=== PATIENT | male | born 1945 | race Caucasian/White ===

== ENCOUNTER 2022-05-14 11:21 | Observation (INO) | payer MEDICARE, BC, SELFPAY ==
[2022-05-14] VITALS (18 sets, daily range): BP systolic 96–125; BP diastolic 60–80; PULSE 70–128; RESP 15–20; TEMP 36.2–36.3; O2SAT 94–100; BMI 25.9
--- NOTE | ~2022-05-14 | US_ITS ---
EXAMINATION: US scrotum doppler DATE: 05/14/2022 12:39 INDICATION: Scrotal edema TECHNIQUE: Testicular sonogram utilizing grayscale and Doppler COMPARISON: None. FINDINGS: The right testis measures 3.3 x 3.6 x 1.0 cm. The left testis measures 3.8 x 1.3 x 2.8 cm. There is normal vascular flow to both testes. The right epididymis contains a 7 mm cyst or spermatoce le. The left epididymis contains a 5 mm cyst or spermatocele. There is a moderate-sized right hydroce le. There are loops of bowel herniated into the right scrotum. IMPRESSION: 1. Herniated bowel in the right scrotum. Reviewed, dictated and finalized at location B.
--- NOTE | ~2022-05-14 | XR_ITS ---
EXAMINATION: XR chest 1V portable INDICATION: Transient alteration of awareness TECHNIQUE: Portable AP chest at 1137 hours COMPARISON: None available FINDINGS: The lungs are free of acute opacities. No pleural effusion or pneumothorax. The cardiomedia stinal silhouette is normal. IMPRESSION: 1. No acute cardiopulmonary abnormality. Reviewed, dictated and finalized at location B.
--- NOTE | ~2022-05-14 | CT_ITS ---
EXAMINATION: CT brain wo con INDICATION: Transient alteration of awareness COMPARISON: 02/22/2011 TECHNIQUE: Standard unenhanced head CT. The dose-length product (DLP) was 681.00 mGy-cm. The mA was a djusted according to patient size. Iterative reconstruction technique was employed. FINDINGS: There is no acute intraparenchymal hemorrhage. No evidence of mass lesion. No evidence of a cute infarction. 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 There is mild periventricular and subcortical hypodensity probably related to small vessel ischemic disease. There is mild prominence of the sulci and ventricles related to cerebral atrophy. Intracranial calcified cerebral atherosclero sis is noted. There are no extra-axial collections. There is no mass effect or midline shift. The orb its and soft tissues are unremarkable. The visualized sinuses and mastoid air cells are well aerated. IMPRESSION: 1. No acute intracranial abnormality. 2. Age related findings. Reviewed, dictated and finalized at location B.
--- NOTE | ~2022-05-14 | US_ITS ---
EXAMINATION: US carotid duplex BI DATE: 05/15/2022 11:29 INDICATION: Carotids stenosis TECHNIQUE: Grayscale, color Doppler, and pulsed Doppler images of the cervical carotid arteries were obtained. The degree of vessel stenosis is placed in one of the following categories: normal, <50%, 5 0-69%, >=70% but less than near-occlusion, near-occlusion, or total occlusion. Note that percent sten osis relative to normal distal artery lumen diameter is indirectly measured from velocity measurement s as described by Geovani, et al. Radiology 2003; 229:340-346. Notes: Normal: Peak systolic velocity <125 centimeters/sec and no plaque <50%. Peak systolic velocity <125 ( EDV <40; ICA/CCA PSV ratio <2.0; used these factors only a tandem lesions or low cardiac output or co ntralateral disease) 50-69 %: PSV 125-230 (EDV 40-100; ratio 2-4) >= 70% but less than near occlusion: PSV greater than 230 (EDV > 100; ratio> 4.0) Near Occlusion: PSV that is variable; markedly narrowed lumen Occlusion: Absent flow on color/spectral Doppler and no lumen on hopkins scale. COMPARISON: None. FINDINGS: RIGHT: The right common carotid artery (CCA) peak systolic velocity (PSV) is 65 cm/s. The right internal car otid artery (ICA) PSV is 116 cm/s. The right ICA end-diastolic velocity (EDV) is 32 cm/s. The right I CA/CCA PSV ratio is 1.8. The external carotid artery (ECA) PSV is 94 cm/s. There is antegrade flow in the right vertebral artery. LEFT: The left CCA PSV is 65 cm/s. The left ICA PSV is 97 cm/s. The left ICA EDV is 27 cm/s. The left ICA/C CA PSV ratio is 1.8. The ECA PSV is 104 cm/s. There is antegrade flow in the left vertebral artery. IMPRESSION: 1. Less than 50% stenosis in the right internal carotid artery by sonographic criteria. 2. Less than 50% stenosis in the left internal carotid artery by sonographic criteria. Reviewed, dictated and finalized at location A. IMPRESSION: 1. Less than 50% stenosis in the right internal carotid artery by sonographic la davila. 2. Less than 50% stenosis in the left internal carotid artery by sonographic misti kwong.
[2022-05-14 11:31] LABS: Glucose Point of Care 180 mg/dl (65-105)
[2022-05-14] MEDS: SODIUM CHLORIDE 0.9% IV 1,000 ML 999 ML IV CONT (11:43)
--- NOTE | 2022-05-14 11:43 | PC.NURSE ---
Pt to CT. will go to ultrasound following CT.
--- NOTE | 2022-05-14 11:44 | ECG_ITS ---
Measurements Intervals [place] Rate: 89 P: 54 ME: 160 QRS: 28 QRSD: 94 T: 81 QT: 420 QTc: 511 Interpretive Statements SINUS RHYTHM LEFT VENTRICULAR HYPERTROPHY AND ST-T CHANGE BORDERLINE ECG Electronically Signed On 05-14-2022 12:07:59 CDT by Luis Antonio Huerta D.O.
[2022-05-14 11:54] LABS: Basophils Absolute Auto 0.1 K/mm3 (0.0-0.1); Basophils Percent Auto 0.7 % (0.2-1.2); Eosinophils Absolute Auto 0.3 K/mm3 (0-0.3); Eosinophils Percent Auto 3.5 % (0-4.4); Hematocrit 34.7 % (42.0-52.0); Immature Granulocyte Absolute 0.03 K/mm3 (0.00-0.031); Immature Granulocyte Percent A 0.3 % (0-0.5); Lymphocytes Absolute Auto 2.88 K/mm3 (0.9-3.2); Lymphocytes Percent Auto 31.9 % (18.3-44.2); Mean Corpuscular HGB Conc 28.8 g/dl (32-36); Mean Corpuscular Hemoglobin 24.5 pg (26-34); Mean Platelet Volume 11.2 fl (7.4-10.4); Monocytes Absolute Auto 1.1 K/mm3 (0.1-0.6); Monocytes Percent Auto 11.6 % (2.6-8.5); Neutrophils Absolute Auto 4.7 K/mm3 (1.3-6.7); Platelet Count Result 303 k/mm3 (150-375); Red Blood Count 4.08 M/mm3 (4.6-6.20); Red Cell Distribution Width 19.9 % (11.5-14.5)
--- NOTE | 2022-05-14 12:01 | ED.GENADULT ---
HPI - General Adult General Chief complaint: Syncope Stated complaint: snycope Time Seen by Provider: 05/14/22 11:25 Source: RN notes reviewed History of Present Illness HPI narrative: Patient presents emergency department from hospital waiting room for possible syncopal episode. Rapid response was called and patient was found lying on the floor and in the waiting room patient was initially diaphoretic and having repetitive questioning per staff the responded patient currently is laying in bed he denies any complaints at this time. States he does not recall what happened he denies having any headaches, numbness or tingling in extremities, chest pain, shortness of breath abdominal pain nausea vomiting or any other symptoms. Patient is noted to have a swollen scrotum and he states that his scrotum has been swollen for quite some time and that this is not new and has no pain Related Data Home Medications Medication Instructions Recorded Confirmed Acid Controller 20 mg BID 05/14/22 05/14/22 Lactobacills gasseri-Bifidobac 1 cap PO DAILY 05/14/22 05/14/22 bifidum,longum 1.5 billion cell capsule (Charge Payment) One Daily [employer] 1 tablet DAILY 05/14/22 05/14/22 amlodipine 5 mg tablet 5 mg BID 05/14/22 05/14/22 aspirin 325 mg tablet 325 mg PO DAILY 05/14/22 05/14/22 clopidogrel 75 mg tablet 75 mg DAILY 05/14/22 05/14/22 dexlansoprazole 60 mg 60 mg DAILY 05/14/22 05/14/22 capsule,biphase delayed release (Dexilant) lecithin 1,200 mg BID 05/14/22 05/14/22 saw palmetto 450 mg capsule 2,250 mg DAILY 05/14/22 05/14/22 simvastatin 80 mg tablet 80 mg DAILY 05/14/22 05/14/22 Allergies Allergy/AdvReac Type Severity Reaction Status Date / Time NKDA Allergy Mild Other Uncoded 05/14/22 11:26 Review of Systems Review of Systems: Gen.: Denies fevers or chills Eyes: Denies eye pain or visual change ENT: Denies congestion Respiratory: Denies shortness of breath or cough CV: Denies chest pain or palpitations GI: Denies abdominal pain nausea, emesis or diarrhea Musculoskeletal: Denies back pain or muscle pain Neuro: Denies numbness, tingling, weakness or focal weakness Skin: Denies rash Except as documented, all other systems reviewed and negative [facility] Past Medical History Medical History (Updated 05/14/22 @ 16:57 by Brett Blum DO) Hypertension Social History Social History Smoking status: Never smoker Alcohol intake: never Substance use: never Spiritual care concerns: No Exam Narrative: APPEARANCE: No acute distress, nontoxic, resting in bed EYES: EOMI, PERRL HEENT: Normocephalic, atraumatic, OMM RESPIRATORY: No respiratory distress Clear to auscultation bilaterally with no rhonchi wheezing or rales. CARDIOVASCULAR: Regular rate and rhythm without murmurs rubs or gallops. ABDOMINAL: Soft, nontender, nondistended, no rebound or guarding : Marked scrotal swelling there is no erythema no tenderness to palpation unable to visualize the penis secondary to scrotal swelling MUSCULOSKELETAl: Moves all extremities. No clubbing, cyanosis or edema. NEURO: Awake and alert x 4. Following commands, speech normal, no focal deficits SKIN:: Warm, dry. No rashes lesions or abrasions PSYCHIATRIC: Normal affect/mood, Course Course Emergency Course: Discussed with MARLO Skinner for Dr. Sanchez agrees with admission Discussed with patient his hernia as this has been an ongoing issue and it no acute pain while the patient follow-up with general surgery as an outpatient Discussed with patient and family results of workup and diagnosis. Discussed need for admission. Patient and family understand and agree to current treatment plan Vital Signs Vital signs: Vital Signs Pulse Rate 89 05/14/22 11:23 Respiratory Rate 15 05/14/22 11:23 Blood Pressure 105/69 05/14/22 11:23 Pulse Oximetry 97 05/14/22 11:23 Oxygen Delivery Room Air 05/14/22 11:
[2022-05-14 12:12] LABS: INR 1.2; Partial Thromboplastin Time 26.1 SECONDS (22.3-36.8); Prothrombin Time 14.5 Seconds (11.1-14.7)
[2022-05-14 12:12] LABS: Alanine Aminotransferase 46 U/L (6-50); Albumin Level 4.5 g/dL (3.5-5.1); Alkaline Phosphatase 100 U/L (38-126); Anion Gap 22 mmol/L (8-16); Aspartate Amino Transferase 35 U/L (17-59); Bilirubin,Total 0.6 mg/dL (0.2-1.3); Blood Urea Nitrogen 11 mg/dL (9-20); Calcium 8.8 mg/dL (8.4-10.2); Carbon Dioxide 13 mmol/L (22-30); Chloride 104 mmol/L (98-107); Estimated CRCL calculation 51 ml/min; Estimated Glomerular Filt Rate > 60; Glucose 202 mg/dL (65-110); Potassium 3.3 mmol/L (3.4-5.0); Sodium 139 mmol/L (137-145)
[2022-05-14 12:23] LABS: Troponin I 0.012 ng/mL (0.000-0.034)
[2022-05-14 13:00] LABS: Platelet Estimate Adequate (Adequate)
[2022-05-14 13:01] LABS: Giant Platelets Present; Poikilocytosis 1+ (NORMAL)
[2022-05-14 13:02] LABS: Hypochromasia 2+ (NORMAL)
[2022-05-14 13:03] LABS: Atypical Lymphocytes Present; Burr Cells 1+ (NORMAL); Crenated RBC 1+ (NORMAL)
--- NOTE | 2022-05-14 13:06 | PC.NURSE ---
Pt attempting to provide urine sample.
[2022-05-14 13:20] LABS: Appearance Urine Clear (Clear); Bilirubin Urine Negative (Negative); Blood Urine Negative (Negative); Glucose Urine UA Negative (Negative); Ketones Urine Negative (Negative); Leukocyte Esterase Ur Negative LEU/UL (Negative); Nitrate Urine Negative (Negative); Protein Urine 1+ mg/dL (Negative); Urobilinogen Urine 0.2 mg/dL (<2.0)
[2022-05-14 13:28] LABS: Base Excess ABG -1.8 mEq/l (+/-2.0); Carboxyhemoglobin 0.1 % THb (0-2.0); Fractional Inspired Oxygen 21 %; HCO3 ABG 21.1 mEq/l (22.0-26.0); Oxygen Content ABG 14.5 %vol (16.0-22.0); Oxygen Saturation ABG 96.9 % (95.0-100.0); Oxyhemoglobin 95.5 % THb (90.0-100.0); PCO2 ABG 29.7 mmHg (35.0-45.0); PO2 ABG 83.2 mmHg (80.0-100.0); PO2 FiO2 Ratio Arterial Blood 3.96 %; Reduced Hemoglobin 4.4 %THb (0-5.0); Total Hemoglobin 10.7 g/dL (12.0-18.0)
[2022-05-14 13:29] LABS: Device ROOM AIR; Modified Allen's Test Pass; Site Drawn RIGHT RADIAL
[2022-05-14 13:33] LABS: Add Urine Microscopic? YES; Bacteria Urine Trace /hpf; Color Urine Light Yellow (Yellow); Mucus Urine Few /lpf; RBC Urine 0-2 /hpf (0-2); WBC Urine 0-3 /hpf
--- NOTE | 2022-05-14 13:33 | PC.NURSE ---
vrbo ok to change potassium 20 to powder per erp dr jane.
[2022-05-14] MEDS: POTASSIUM CHLORIDE 20 MEQ PACKET (FOR LIQUID) PO (13:39)
[2022-05-14 13:42] LABS: Lactic Acid Reflex 1.7 mmol/L (0.7-2.0)
--- NOTE | 2022-05-14 14:38 | PC.NURSE ---
This patient, Yeison See, was admitted to Medical Room 251-01. Patient/family oriented to hospital policies and general routines including ID bracelet, bed and alarms, visiting hours, pain management, procedures, bathroom and other care routines, personal items, smoking policy, room service/diet, and visiting hours. Information on how to activate the Rapid Response Team has been discussed. Patient/Family are encouraged to report perceived risks to care and to ask questions if they do not understand what they are told or what they should do.
--- NOTE | 2022-05-14 14:40 | PM.IMHP ---
H&P: HPI History of Present Illness Date/Time: 05/14/22 14:40 Chief Complaint: Found on ground. Narrative: This is a pleasant 76-year-old male with history of TIA, carotid artery disease status post left carotid artery stent, hypertension, hyperlipidemia, and benign prostatic hyperplasia who was brought to the emergency department from the 3rd floor waiting room for evaluation after he was found on the ground after a presumed syncopal episode. He was in his usual state of health when he awoke this morning and he came to the hospital to visit one of his parishioners. After the visit and while he was walking down the ramp to the elevator when he began to feel some discomfort in his chest associated with shortness of breath and weakness. At that time he walked to the waiting area where he sat down in a chair to rest. It is my understanding that another visitor was in the waiting room and they called for help after the patient reportedly fell out of his chair and was unconscious. He was awake and alert but confused and repetitive when staff responded. He was also pale and diaphoretic and Accu-Chek at that time was 195. He was brought down to the ER where his vital signs were stable and they have remained stable. Pertinent findings on workup done in ED include a mild normocytic anemia, mild hypokalemia, low serum carbon dioxide, anion gap of 22, and a troponin of 0.012. Brain CT and chest x-ray were both unremarkable for acute findings. EKG showed a sinus rhythm with findings of LVH changes. He has since been admitted for further evaluation of a presumed syncopal episode. At the time my evaluation he is watching television, has just finished eating, and he feels just fine. With further questioning he reports having several episodes of brief midsternal chest discomfort while walking over the last couple of days. The discomfort was fleeting and self-limiting and resolved with rest. He denies associated symptoms, specifically denying lightheadedness, dizziness, sweats, shortness of breath, nausea, and vomiting. Over the years he has had similar episodes however he has never had a workup as he has always put his own health 2nd to that of his who had dementia recently . He has no known history of coronary artery disease. He has no history of syncope or seizures. He denies injury with the episode today. There was no bowel or bladder incontinence nor tongue bite. He has not had palpitations, sensations of racing heart, pleuritic pain, or feelings of near-syncope (prior to this afternoon). Review of Systems Review of Systems: Twelve systems were reviewed. He is doing okay with the loss of his in February though he admits that he has not been sleeping well and has probably not been eating well either. He has not noticed any significant weight change. No recent cold or flu symptoms. No sick contacts. No cough. No orthopnea, paroxysmal nocturnal dyspnea, or lower extremity edema. No calf pain or tenderness. No history of venous thromboembolism. He reports swelling of the scrotum for years and he was found to have a hernia on imaging today. He has never had any pain in this area. No issues with urinating or defecating. Except as documented, all other systems were reviewed and are negative. [facility] Past Medical History Medical History (Updated 05/14/22 @ 21:30 by Susanne Romo PA-C) Benign prostatic hyperplasia Carotid artery disease Gastroesophageal reflux disease Hyperlipidemia Hypertension Pseudogout Transient ischemic attack (2010) Surgical History Surgical History (Updated 05/14/22 @ 21:24 by Susanne Romo PA-C) History of cholecystectomy History of left common carotid artery stent placement (2010) History of repair of laceration Left leg. History of squamous cell carcinoma excision Upper back. History of transurethral resection of prostate Family History Family History Other
[2022-05-14] MEDS: SODIUM CHLORIDE 0.9% IV 1,000 ML 100 ML IV CONT (15:56)
[2022-05-14 17:43] LABS: Troponin I 0.446 ng/mL (0.000-0.034)
--- NOTE | 2022-05-14 17:44 | ECG_ITS ---
Measurements Intervals [place] Rate: 74 P: 37 CO: 152 QRS: 7 QRSD: 92 T: 66 QT: 410 QTc: 457 Interpretive Statements SINUS RHYTHM WITH SINUS ARRHYTHMIA LEFT VENTRICULAR HYPERTROPHY WITH ST-T CHANGE BASELINE ARTIFACT- I, II, III, AVR, AVL, AVF, V1-V6 BORDERLINE ECG Electronically Signed On 05-14-2022 21:00:09 CDT by Luis Antonio Huerta D.O.
[2022-05-14] MEDS: ENOXAPARIN 80 MG/0.8 ML SYRINGE SUB-Q (17:53)
[2022-05-14 19:26] LABS: Anion Gap 11 mmol/L (8-16); Blood Urea Nitrogen 10 mg/dL (9-20); Calcium 8.8 mg/dL (8.4-10.2); Carbon Dioxide 20 mmol/L (22-30); Chloride 108 mmol/L (98-107); Estimated CRCL calculation 51 ml/min; Estimated Glomerular Filt Rate > 60; Glucose 170 mg/dL (65-110); Magnesium 2.2 mg/dL (1.6-2.3); Potassium 4.1 mmol/L (3.4-5.0); Sodium 139 mmol/L (137-145)
[2022-05-14] MEDS: amLODIPine BESYLATE 5 MG TABLET BY MOUTH (21:18)
[2022-05-14 21:22] LABS: Troponin I 0.514 ng/mL (0.000-0.034)
[2022-05-14] MEDS: METOPROLOL TARTRATE 12.5 MG TABLET PO (22:09)
[2022-05-15] VITALS (16 sets, daily range): BP systolic 93–130; BP diastolic 57–79; PULSE 65–87; RESP 16–18; TEMP 36.4–36.6; O2SAT 97–100
[2022-05-15 05:34] LABS: Basophils Percent Auto 0.4 % (0.2-1.2); Eosinophils Absolute Auto 0.3 K/mm3 (0-0.3); Eosinophils Percent Auto 4.5 % (0-4.4); Hematocrit 33.3 % (42.0-52.0); Hemoglobin 9.8 g/dL (14.0-18.0); Immature Granulocyte Absolute 0.03 K/mm3 (0.00-0.031); Immature Granulocyte Percent A 0.4 % (0-0.5); Lymphocytes Absolute Auto 1.56 K/mm3 (0.9-3.2); Lymphocytes Percent Auto 22.6 % (18.3-44.2); Mean Corpuscular HGB Conc 29.4 g/dl (32-36); Mean Corpuscular Hemoglobin 24.7 pg (26-34); Mean Corpuscular Volume 84.1 fl (80-100); Mean Platelet Volume 11.1 fl (7.4-10.4); Monocytes Absolute Auto 0.8 K/mm3 (0.1-0.6); Monocytes Percent Auto 11.6 % (2.6-8.5); Neutrophils Absolute Auto 4.2 K/mm3 (1.3-6.7); Neutrophils Percent Auto 60.5 % (45.5-73.1); Platelet Count Result 241 k/mm3 (150-375); Red Blood Count 3.96 M/mm3 (4.6-6.20); Red Cell Distribution Width 19.7 % (11.5-14.5); White Blood Count 6.9 K/mm3 (4.5-10.0)
[2022-05-15 05:39] LABS: Hemoglobin A1C 6.4 % (<5.7)
[2022-05-15 05:41] LABS: Alanine Aminotransferase 33 U/L (6-50); Albumin Level 3.8 g/dL (3.5-5.1); Alkaline Phosphatase 85 U/L (38-126); Anion Gap 9 mmol/L (8-16); Aspartate Amino Transferase 32 U/L (17-59); Bilirubin,Total 0.7 mg/dL (0.2-1.3); Blood Urea Nitrogen 11 mg/dL (9-20); Calcium 8.8 mg/dL (8.4-10.2); Carbon Dioxide 23 mmol/L (22-30); Chloride 106 mmol/L (98-107); Estimated CRCL calculation 61 ml/min; Estimated Glomerular Filt Rate > 60; Glucose 118 mg/dL (65-110); Magnesium 2.2 mg/dL (1.6-2.3); Potassium 3.8 mmol/L (3.4-5.0); Sodium 138 mmol/L (137-145)
[2022-05-15 06:12] LABS: Anisocytosis 2+ (NORMAL); Hypochromasia 1+ (NORMAL); Platelet Estimate Adequate (Adequate)
--- NOTE | 2022-05-15 07:34 | PM.IMPN ---
Progress Note: A&P Assessment and Plan (1) Syncope: Code(s): R55 - Syncope and collapse Status: Acute Assessment and Plan: Patient currently asymptomatic but likely has critical aortic stenosis. Hemodynamically stable. -Echo pending -Carotid US pending -Appreciate recommendations from Cardiology (2) Hypokalemia: Code(s): E87.6 - Hypokalemia Status: Acute Assessment and Plan: Resolved. (3) Hyperglycemia: Code(s): R73.9 - Hyperglycemia, unspecified Status: Acute Assessment and Plan: Hemoglobin a1c 6.4. (4) Carotid artery disease: Code(s): I77.9 - Disorder of arteries and arterioles, unspecified Status: Acute Assessment and Plan: On statin, aspirin and plavix. Appreciate recommendations from Cardiology. (5) Hypertension: Code(s): I10 - Essential (primary) hypertension Status: Acute Assessment and Plan: Discontinue metoprolol. Will restart amlodipine BID. (6) Hyperlipidemia: Code(s): E78.5 - Hyperlipidemia, unspecified Status: Acute Assessment and Plan: Continue simvastatin 80 mg daily. (7) Right inguinal hernia: Code(s): K40.90 - Unilateral inguinal hernia, without obstruction or gangrene, not specified as recurrent Status: Acute Assessment and Plan: Scrotal ultrasound shows bowel in hernia but no strangulation or incarceration. Clinically stable. Will monitor. (8) Benign prostatic hyperplasia: Code(s): N40.0 - Benign prostatic hyperplasia without lower urinary tract symptoms Status: Acute Assessment and Plan: No acute issues. Subjective Date/time seen: 05/15/22 07:34 Patient denies chest pain, shortness of breath or difficulty breathing. Patient says for a few days prior to him collapsing in the hospital he would have to stop to rest when out and about due to shortness of breath. He also says he was scheduled to have workup for his valve replacement in the Fall of 2019, but then his also had aortic stenosis and had to have her valve repaired. She had a protracted course with multiple hospitalizations and from dementia in February 2022. He has not really followed up with his heart valve issue as he has been taking care of his . Review of Systems Cardiovascular: Cardiovascular: Denies chest pain Respiratory: Respiratory: Denies dyspnea Exam Narrative: GENERAL: NAD, cooperative HEENT: Normocephalic, atraumatic, anicteric NECK: Supple CV: 3/6 WILLIAN LUSB, regular rate and rhythm, no rubs or gallops. RESP: CTAB, Normal work of breathing. Abdomen: Soft, non-tender, non-distended, +BS EXTREMITIES: Warm and well perfused, no clubbing, cyanosis, or edema. SKIN: warm, dry and intact. NEURO:CN 2-12 grossly intact. Objective Data Vital Signs Vital Signs: Vital Signs - 24 hr 05/14/22 11:23 05/14/22 11:33 05/14/22 12:31 Temperature Pulse Rate 89 86 85 Respiratory Rate 15 20 Blood Pressure 105/69 96/62 L Pulse Oximetry 97 94 Oxygen Delivery Room Air 05/14/22 12:36 05/14/22 12:38 05/14/22 13:08 Temperature Pulse Rate 94 90 Respiratory Rate 16 16 Blood Pressure 109/72 117/75 Pulse Oximetry 99 99 Oxygen Delivery 05/14/22 13:25 05/14/22 13:27 05/14/22 13:30 Temperature Pulse Rate 128 H 83 89 Respiratory Rate 16 Blood Pressure Pulse Oximetry 96 95 Oxygen Delivery 05/14/22 13:32 05/14/22 14:15 05/14/22 14:50 Temperature Pulse Rate 90 80 Respiratory Rate 20 16 Blood Pressure 113/80 111/72 Pulse Oximetry 97 100 Oxygen Delivery Room Air 05/14/22 14:54 05/14/22 14:54 05/14/22 14:57 Temperature 97.4 F L Pulse Rate 78 78 99 Respiratory Rate 18 Blood Pressure 107/65 107/65 110/66 Pulse Oximetry 98 98 97 Oxygen Delivery 05/14/22 14:28 05/14/22 17:21 05/14/22 19:20 Temperature 97.2 F L Pulse Rate 96 80 Respiratory Rate
[2022-05-15 07:46] LABS: Glucose Point of Care 127 mg/dl (65-105)
--- NOTE | 2022-05-15 08:27 | PM.CNCAR ---
Assessment and Plan Assessment and plan (1) Aortic stenosis: Code(s): I35.0 - Nonrheumatic aortic (valve) stenosis Status: Acute Plan this is a 76-year-old gentleman who experienced a syncopal episode yesterday afternoon while he was in the hospital visiting a parishioner. He recovered spontaneously and appears to be stable since then. There have not been any arrhythmias noted in the emergency room or on telemetry since admission. There are 2 EKGs in the chart. The 1st 1 immediately after the event did show some lateral ST segment depression which has resolved. His troponin levels are out of normal range but are flat not indicative of acute coronary syndrome. I think it is relatively clear he has at least by physical exam severe aortic valve stenosis which is likely the principal etiology of his syncopal episode. It echocardiogram to evaluate that has appropriately been ordered for this today. 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 Tom Benítez MD [facility] History of Present Illness History of Present Illness Consult date/time: 05/15/22 08:27 Reason For Visit: Syncope Narrative: This is a very pleasant 76-year-old gentleman up seeing this morning at the request of the hospitalist after a syncopal episode occurred yesterday and prompted evaluation in the emergency room and admission to the hospital. He feels well this morning and does not have any symptoms at all. The patient states that he was here I yesterday visiting a operation her in the hospital who was ill. 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 He was up stairs on the 3rd floor and began to feel unwell and weak in general. He made it to open waiting room where he thought he would sit down and relax for a while. He then obviously lost consciousness because the next thing he remembers is being on a stretcher in being taken down the boone to the emergency department for evaluation. When he was on the stretcher he said he had no set other symptoms such as chest pain or dyspnea. He has not experienced a syncopal episode in the past. He does state that with physical activity recently he does have some shortness of breath and more easily fatigued symptoms. He is not having any orthopnea PND or edema. He states that he is known to have valvular heart disease and is a established patient of Dr. Bocanegra in [place]. He states that there was concern about the condition of his aortic valve several years ago. He then had the workup of that interrupted because of coronavirus and illness in his . The patient's was found to have serious valvular heart disease and underwent valve replacement procedure at [facility] in October of this year. She did not recover well and in February of this year. For these reasons the patient has not been attend to his own health for a couple of years. He otherwise reports as far she can tell to be in reasonably good health. He does have longstanding hypertension for which he takes medical therapy he is also known to have carotid artery disease and underwent a carotid artery stent procedure at [facility] a couple of years ago. Review of Systems Constitutional: Constitutional: Reports no additional constitutional complaints Eyes: Eyes: Reports no additional eye complaints ENT: Reports system reviewed and no additional complaints, except as documented Cardiovascular: Cardiovascular: Reports as per HPI Respiratory: Respiratory: Reports dyspnea on exertion Gastrointestinal: Gastrointestinal: Reports no additional gastrointestinal complaints Musculoskeletal: Musculoskeletal: Reports back pain Integumentary/Breasts: Skin/Breast: Reports system reviewed and no additional complaints, except as docu Neurologic: Reports as per HPI Endocrine: Endocrine: Rep
[2022-05-15] MEDS: CLOPIDOGREL BISULFATE 75 MG TABLET BY MOUTH (08:28)
[2022-05-15] MEDS: ASPIRIN 325 MG TABLET PO (08:28)
[2022-05-15] MEDS: MULTIVITAMINS THERAPEUTIC TAB (*BKC) 1 TABLET PO (08:28)
[2022-05-15] MEDS: amLODIPine BESYLATE 5 MG TABLET PO ×2 (08:28→23:18)
[2022-05-15] MEDS: SIMVASTATIN 20 MG TABLET 80 MG BY MOUTH (08:29)
[2022-05-15] MEDS: METOPROLOL TARTRATE 12.5 MG TABLET PO (09:09)
[2022-05-15] MEDS: PERFLUTREN LIPID MICROSPHERES 1.5 ML VIAL DILUTED TO 10 ML TOTAL VOLUME IV PUSH (09:57)
--- NOTE | 2022-05-15 09:58 | IVDEFINITY ---
Prior to administration of IV Definity the patient was educated on the risks and benefits of the imaging enhancing agent including potential adverse side effects. The patient verbalized understanding. Allergies were verified. No exclusion criteria were identified and at least one of the following inclusion criteria were met: 1) physician request, 2) patient technically difficult to image (per the [place] [employer]ocardi[employer] guidelines of two or more segments not discernable within the apical view), or 3) questionable left ventricular function. ?
[2022-05-15 11:05] LABS: Glucose Point of Care 189 mg/dl (65-105)
[2022-05-15] MEDS: polyethylene glycoL 3350 17 GM POWD.PACK PO (15:46)
[2022-05-15] MEDS: PANTOPRAZOLE 40 MG TABLET PO (16:22)
[2022-05-15 16:34] LABS: Glucose Point of Care 134 mg/dl (65-105)
--- NOTE | 2022-05-15 19:57 | ECHO_ITS ---
Patient Info Name: Yeison See Age: 76 years : 1945 Gender: Male Ht: 70 in Wt: 180 lbs BSA: 2.02 m2 HR: 87 bpm BP: 107 / 61 mmHg Heart Rhythm: Sinus Rhythm Technical Quality: Fair Exam Date: 05/15/2022 9:00 AM Exam Location: [facility] Pul[facility] Patient Status: Inpatient Admit Date: 05/14/2022 Staff Ordering Physician: Susanne Romo PA-C Electrical Equipment Assembler: Gabriela Medrano RDCS Attending Provider: Colten Sanchez MD Referring Physician: Demetrius GONZALEZ; Exam Type: CA echo dop bubble study w con Study Info Indications - syncope, elevated troponin, htn, hld Complete two-dimentional, color flow and Doppler transthoracic echocardiogram is performed with agitated saline and with contrast to opacify the left ventricle and to improve the delineation of the left ventricle endocardial borders. Contrast/Agitated Saline Contrast/Ag. Saline: Definity Amount: 3.00 ml Administered By: Gabriela Medrano RDCS Existing IV Access: Yes IV Access Condition: patent with no signs of infiltration Contrast/Ag. Saline: Agitated Saline Amount: --- ml Administered By: Anjali Larose [facility] Existing IV Access: Yes IV Access Condition: patent with no signs of infiltration Summary 1. There is mild concentric increased left ventricular wall thickness. 2. Left ventricular systolic function is normal, estimated at 60-65%. 3. The left ventricular diastolic function is grade II diastolic dysfunction. 4. There is severe aortic valve stenosis with a peak velocity of 467 cm/s, mean gradient of 56 mmHg, and aortic valve area of 0.4 cm2. Left Ventricle Left ventricular chamber dimension is normal. Left ventricular systolic function is normal, estimated at 60-65%. There is mild concentric increased left ventricular wall thickness. The left ventricular diastolic function is grade II diastolic dysfunction. Right Ventricle Right ventricular chamber dimension is normal. Left Atria Left atrial chamber dimension is moderately enlarged. Right Atria Right atrial chamber dimension is normal. Aortic Valve The aortic valve is trileaflet. There is severe aortic valve sclerosis. There is severe aortic valve stenosis with a peak velocity of 467 cm/s, mean gradient of 56 mmHg, and aortic valve area of 0.4 cm2. There is no aortic valve regurgitation. Pulmonic Valve The pulmonic valve is normal. There is mild pulmonic regurgitation. Mitral Valve The mitral valve has normal leaflets. There is trace mitral valve regurgitation. Tricuspid Valve The tricuspid valve leaflets are normal. There is mild tricuspid valve regurgitation. Pericardium/Pleural The pericardium appears normal. Aorta The aortic root size at the sinus of Valsalva is normal. Left Ventricular Outflow Tract Name Value Normal LVOT 2D LVOT Diameter 2.4 cm LVOT Doppler LVOT Peak Gradient 2 mmHg LVOT Mean Gradient 1 mmHg LVOT VTI 9 cm LVOT VTI/AV
[2022-05-15 23:22] LABS: Glucose Point of Care 118 mg/dl (65-105)
[2022-05-16] VITALS (9 sets, daily range): BP systolic 108–129; BP diastolic 55–71; PULSE 69–108; RESP 16; TEMP 36.6; O2SAT 92–97
--- NOTE | 2022-05-16 07:20 | PM.DS ---
DS: Admitting Diagnosis Discharge Date 05/16/22 Admitting Diagnosis Syncope DS: Discharge Diagnosis Discharge Diagnosis (1) Syncope: Code(s): R55 - Syncope and collapse Status: Acute Assessment and Plan: Patient currently asymptomatic but likely has critical aortic stenosis. Hemodynamically stable. Echo EF 60-65%, grade II diastolic dysfunction, severe aortic valve stenosis w/ a peak velocity 467. Carotid US showed less than 50% stenosis for right and left internal Carotid. Patient will be discharged and follow up with his combustion analyst, Dr. Ryan. (2) Hypokalemia: Code(s): E87.6 - Hypokalemia Status: Acute Assessment and Plan: Discussed with Cardiology has patient had some NSVT overnight and will start potassium citrate 10 mEq daily. (3) Hyperglycemia: Code(s): R73.9 - Hyperglycemia, unspecified Status: Acute Assessment and Plan: Hemoglobin a1c 6.4. (4) Carotid artery disease: Code(s): I77.9 - Disorder of arteries and arterioles, unspecified Status: Acute Assessment and Plan: On statin, aspirin and plavix. Appreciate recommendations from Cardiology. (5) Hypertension: Code(s): I10 - Essential (primary) hypertension Status: Acute Assessment and Plan: Discontinue metoprolol. Will restart amlodipine BID. (6) Hyperlipidemia: Code(s): E78.5 - Hyperlipidemia, unspecified Status: Acute Assessment and Plan: Continue simvastatin 80 mg daily. (7) Right inguinal hernia: Code(s): K40.90 - Unilateral inguinal hernia, without obstruction or gangrene, not specified as recurrent Status: Acute Assessment and Plan: Scrotal ultrasound shows bowel in hernia but no strangulation or incarceration. Clinically stable. Will monitor. (8) Benign prostatic hyperplasia: Code(s): N40.0 - Benign prostatic hyperplasia without lower urinary tract symptoms Status: Acute Assessment and Plan: No acute issues. DS: Summary Hospital Course Reason for hospitalization: Syncope Hospital Course: 76-year-old male with history of TIA, carotid artery disease status post left carotid artery stent, hypertension, hyperlipidemia, and benign prostatic hyperplasia who was brought to the emergency department from the 3rd floor waiting room for evaluation after he was found on the ground after a presumed syncopal episode. Echo EF 60-65%, grade II diastolic dysfunction, severe aortic valve stenosis w/ a peak velocity 467. Carotid US showed less than 50% stenosis for right and left internal Carotid. Cardiology was consulted. Patient had previously been scheduled to have workup to get ready for valve replacement, but his became ill, so he delayed follow up. Cardiology contacted the patient's Rapid Extractor Operator, Dr. Silver, who agreed to see the patient in the office the week following discharge. Patient discharged with potassium citrate because he had non-sustained ventricular tachycardia on telemetry prior to discharge. This was discussed with Cardiology. Time Spent with Patient Time attestation: Total time spent providing and/or coordinating discharge services: Exam Narrative: GENERAL: NAD, cooperative HEENT: Normocephalic, atraumatic, anicteric NECK: Supple CV: 3/6 WILLIAN LUSB, regular rate and rhythm, no rubs or gallops. RESP: CTAB, Normal work of breathing. Abdomen: Soft, non-tender, non-distended, +BS EXTREMITIES: Warm and well perfused, no clubbing, cyanosis, or edema. SKIN: warm, dry and intact. NEURO:CN 2-12 grossly intact. DS: Data Data Completed and Pending Labs on day of discharge: Labs from last 24 hours 05/15/22 05/15/22 05/15/22 21:25 16:32 11:02 POC Capillary Glucose 118 H 134 H 189 H 05/15/22 07:43 POC Capillary Glucose 127 H Laboratory Tests 05/14/22 05/14/22 05/14/22 11:24 11:38 11:38 WBC 9.0 RBC 4.08 L Hgb
[2022-05-16 07:46] LABS: Glucose Point of Care 134 mg/dl (65-105)
[2022-05-16] MEDS: SIMVASTATIN 20 MG TABLET 80 MG BY MOUTH (08:02)
[2022-05-16] MEDS: CLOPIDOGREL BISULFATE 75 MG TABLET BY MOUTH (08:02)
[2022-05-16] MEDS: PANTOPRAZOLE 40 MG TABLET PO (08:02)
[2022-05-16] MEDS: MULTIVITAMINS THERAPEUTIC TAB (*BKC) 1 TABLET PO (08:02)
[2022-05-16] MEDS: ASPIRIN 325 MG ENTERIC TABLET PO (08:03)
[2022-05-16] MEDS: amLODIPine BESYLATE 5 MG TABLET PO (08:03)
[2022-05-16] MEDS: polyethylene glycoL 3350 17 GM POWD.PACK PO (08:04)
[2022-05-16 11:21] LABS: Glucose Point of Care 118 mg/dl (65-105)
--- NOTE | 2022-05-16 13:20 | PM.PNCARD ---
Progress Note: A&P Assessment and Plan (1) Aortic stenosis: Code(s): I35.0 - Nonrheumatic aortic (valve) stenosis Status: Acute Assessment and Plan: Patient with symptomatic severe aortic stenosis, needs to pursue aortic valve replacement Dr. Benítez contacted the patient's usual blow moulding machine operator, Dr. Ryan yesterday, who would like to see the patient for follow-up visit this week The patient had ST depression on his admitting EKG as well as elevated troponins, suggestive of ischemia/type 2 MN. This may all be due to his severe aortic stenosis, or he may have some underlying CAD that is aggravated by his aortic stenosis. The patient knows not to do any exertion or significant activity until after treatment of the aortic valve and his cardiac status. He knows to return if he has any further dizziness, syncope, chest discomfort, shortness of breath, etc.. He was told of the seriousness of the situation and appears to understand; states he will comply. Continue aspirin, Plavix, simvastatin. Avoid nitrates. (2) Syncope: Code(s): R55 - Syncope and collapse Status: Acute Assessment and Plan: Probable syncopal event at, after exertion. May all be due to severe aortic stenosis although underlying CAD is also possible. Does have some nonsustained ventricular tachycardia on telemetry monitoring, which is of course worrisome. Apparently a low-dose of metoprolol was attempted yesterday but the patient had low blood pressure and heart rate so we are not able to use any beta-jamison at this time. Potassium was low on admission, resolved, and after discussion with Dr. Wang we decided to discharge the patient with low dose potassium 10 mEq daily. (3) Elevated troponin: Code(s): R77.8 - Other specified abnormalities of plasma proteins Status: Acute Assessment and Plan: Secondary to aortic stenosis, plus-minus underlying CAD. Subjective Date/time seen: Follow-up for syncope, severe aortic stenosis. Date of service 05/16/22 13:20: Patient is doing well, up to the bathroom and back with no problems. Keegan Green and Yeison are at the bedside. No dizziness, shortness of breath. Telemetry shows sinus rhythm, no AV conduction problems or pauses. Some nonsustained ventricular tachycardia noted. Troponin: 0.012, 0.44 6 and 0.514 Review of Systems Constitutional: Constitutional: Denies fever(s) Cardiovascular: Cardiovascular: Denies chest pain, Denies pedal edema, Denies lightheadedness and Denies dyspnea Respiratory: Respiratory: Denies chest congestion and Denies dyspnea Gastrointestinal: Gastrointestinal: Denies abdominal pain and Denies hematochezia Musculoskeletal: Musculoskeletal: Reports back pain (History of disc problems) Integumentary/Breasts: Skin/Breast: Reports system reviewed and no additional complaints, except as docu Neurologic: Reports system reviewed and no additional complaints, except as documented, Denies behavioral changes and Denies confusion Psychiatric: Psychiatric: Denies behavioral changes and Denies confusion Exam Const: General: cooperative, healthy appearing and comfortable; No confusion Orientation/consciousness: oriented to person, patient oriented x3 and No confusion Other: Very appreciative and pleasant older gentleman, keegan at the bedside Eyes: EOM: EOMs intact bilaterally Resp: Effort & Inspection: normal respiratory effort Auscultation: clear to auscultation bilaterally Cardio: Rate: regular rate Rhythm: regular rhythm Heart sounds: Murmur heart sound present Other: Harsh 3-4/6 WILLIAN upper sternal borders heard throughout the precordium GI: Inspection: normal to inspection GI Palp: No abdominal tenderness Skin: General skin exam: no rashes or lesions noted Neuro: General: oriented to person, patient oriented x3 and No confusion E
== END 2022-05-16 15:07 | disposition home or self-care (01) ==
LOC: ANHED 12:47 → ANH2MED 16:57
PROVIDERS: Physician Assistant; Admitting Provider Internal Medicine; Emergency Provider Emergency Medicine; PCP Family Medicine; Visit Provider Family Medicine
DX: I35.0 Nonrheumatic aortic (valve) stenosis (principal); R77.8 Other specified abnormalities of plasma proteins; R55 Syncope and collapse; R73.9 Hyperglycemia, unspecified; R53.1 Weakness; D64.9 Anemia, unspecified; E87.6 Hypokalemia; K40.90 Unilateral inguinal hernia, without obstruction or gangrene, not specified as recurrent; I77.9 Disorder of arteries and arterioles, unspecified; I65.23 Occlusion and stenosis of bilateral carotid arteries; I10 Essential (primary) hypertension; E78.5 Hyperlipidemia, unspecified; M10.9 Gout, unspecified; N40.0 Benign prostatic hyperplasia without lower urinary tract symptoms; Z86.73 Personal history of transient ischemic attack (TIA), and cerebral infarction without residual deficits; Z95.5 Presence of coronary angioplasty implant and graft; Z79.02 Long term (current) use of antithrombotics/antiplatelets; Z79.82 Long term (current) use of aspirin
CPT/HCPCS: 36415; 36600; 70450; 71045; 76870; 80048; 80053; 81001; 82375; 82805; 82948; 83036; 83050; 83605; 83735; 84443; 84484; 85025; 85610; 85730; 93005; 93880; 93976; 96361; 96372; 96374; 96375; 99285; A9270; C8929; G0378; J1650; J7030; Q9957